=== PATIENT | male | born 1955 | race Caucasian/White ===

== ENCOUNTER → 2021-04-19 11:18 | Outpatient (BNVA) | payer MEDICARE, SELFPAY | PROVIDERS: Family Provider Family Medicine; PCP Urology; Visit Provider Registered Nurse | DX: I10 Essential (primary) hypertension (principal); E11.9 Type 2 diabetes mellitus without complications; E78.2 Mixed hyperlipidemia | CPT/HCPCS: 80053; 80061; 83036; 85025 ==

== ENCOUNTER → 2021-08-03 09:48 | Outpatient (BNVA) | payer MEDICARE, SELFPAY | PROVIDERS: Family Provider Family Medicine; PCP Registered Nurse; Visit Provider Registered Nurse | DX: E11.9 Type 2 diabetes mellitus without complications (principal); I10 Essential (primary) hypertension | CPT/HCPCS: 83036 ==

== ENCOUNTER → 2021-11-22 08:44 | Outpatient (BNVA) | payer MEDICARE, SELFPAY | PROVIDERS: Family Provider Family Medicine; PCP Registered Nurse; Visit Provider Surgery | DX: Z86.010 Personal history of colon polyps (principal); F17.210 Nicotine dependence, cigarettes, uncomplicated | CPT/HCPCS: 99203 ==

== ENCOUNTER → 2022-01-31 09:13 | Outpatient (BNVA) | payer MEDICARE, SELFPAY | PROVIDERS: Family Provider Family Medicine; PCP Registered Nurse; Visit Provider Registered Nurse | DX: E11.9 Type 2 diabetes mellitus without complications (principal); I10 Essential (primary) hypertension; I27.20 Pulmonary hypertension, unspecified | CPT/HCPCS: 80053; 83036 ==

== ENCOUNTER 2022-02-15 06:01 | Outpatient (CLI) | payer MEDICARE, SELFPAY ==
--- NOTE | 2022-02-15 06:15 | USCV_ITS ---
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 Technologist: NATHANAEL [place] [facility] [place]: PULMONARY HYPERTENSION BP: 197 / 74 HR: 72 Rhythm: Sinus Technical Quality: Suboptimal MEASUREMENTS (Male / Female) Normal Values 2D ECHO LV Ejection Fraction MOD 2C 78.4 % LV Ejection Fraction 2C AL 82.6 % LA Width 3.6 cm LA Height 3.6 cm RA Width 3.4 cm RA Height 3.4 cm IVC Diameter 1.4 cm DOPPLER AV Peak Velocity 142.0 cm/s LVOT Peak Velocity 111.0 cm/s MV Peak Velocity 106.0 cm/s MV Area PHT 4.2 cm squared Mitral E to A Ratio 0.8 MV E' Velocity 47.5 cm/s Mitral E to MV E' Ratio 8.9 Mitral E to LV E' Lateral Ratio 7.4 Mitral E to LV E' Septal Ratio 11.3 TR Peak Velocity 236.8 cm/s TR Peak Gradient 22.4 mmHg TR Mean Velocity 169.0 cm/s TR Mean Gradient 13.9 mmHg TR Velocity Time Integral 64.3 cm TV Peak E Velocity 49.0 cm/s Right Atrial Pressure 3.0 mmHg Pulmonary Artery Systolic Pressu 25.4 mmHg FINDINGS Left Ventricle Normal left ventricular size, systolic function and mildly increased wall thickness, with no regional wall motion abnormalities. Left ventricular ejection fraction is estimated at 65-70 %. Normal diastolic function. Right Ventricle Normal right ventricular size and systolic function. Right ventricular systolic pressure 36 mmHg. Right Atrium Normal right atrial size. Left Atrium Normal left atrial size. Mitral Valve Structurally normal mitral valve. No mitral valve stenosis. Trace mitral valve regurgitation. Aortic Valve Aortic valve not well visualized. No aortic valve stenosis. No aortic valve regurgitation. Tricuspid Valve Structurally normal tricuspid valve. No tricuspid valve stenosis. Trace tricuspid valve regurgitation. Pulmonic Valve Pulmonic valve not well visualized. Pericardium No pericardial effusion. Aorta Aorta not well visualized. IVC Normal inferior vena cava. CONCLUSIONS 1. Normal left ventricular size, systolic function and mildly increased wall thickness, with no regional wall motion abnormalities. Left ventricular ejection fraction is estimated at 65-70 %. Normal diastolic function. 2. Pulmonary artery pressure estimated at 36 mm Hg. 3. Trace tricuspid valve regurgitation. 4. No prior similar studies to compare. Lisa Golden MD (Electronically Signed) Final Date: 18 February 2022 09:43 S
== END 2022-02-15 06:02 | disposition home or self-care (01) ==
LOC: RAD 06:02
PROVIDERS: PCP Registered Nurse; Visit Provider Registered Nurse
DX: I27.20 Pulmonary hypertension, unspecified (principal); I07.1 Rheumatic tricuspid insufficiency
CPT/HCPCS: 93306

== ENCOUNTER 2022-02-22 06:50 | Day surgery (SDC) | payer MEDICARE, SELFPAY ==
[2022-02-20 10:31] VITALS: BMI 21.4
--- NOTE | 2022-02-22 07:21 | P.HP_ITS ---
Same Day Surgery H&P Indication for Procedure/HPI DATE OF PROCEDURE: February 22, 2022 CHIEF COMPLAINT/INDICATIONFOR SURGICAL PROCEDURE: History of colon polyps PREOP DIAGNOSIS: History of colon polyps PLANNED PROCEDURE: Operation Date: 02/22/22 08:30 Proposed Procedures p Colonoscopy 46203/Z86.010(Not Applicable) - Rodger Sommer MD 02/22/2022 Patient comes today for surveillance colonoscopy because of history of colon polyps. ROS All systems have been reviewed negative except as for the above or per problem list. Medications/Allergies* Home Medications Medication Instructions Recorded Confirmed Type aspirin 81 mg tablet,delayed 81 mg PO DAILY 04/28/20 02/20/22 History release gemfibrozil 600 mg tablet 600 mg PO BID 02/20/22 02/20/22 History Allergies/Adverse Reactions Allergy/AdvReac Type Severity Reaction Status Date / Time No Known Allergies Allergy Verified 02/22/22 07:22 Pertinent History/Comorbid Conditions* Medical History (Updated 01/31/22 @ 20:53 by SUZI Small) Cigarette smoker two packs a day or less 2 packs per day Diabetes mellitus type 2 in nonobese History of lung cancer Hyperlipidemia Hypertension Surgical History (Updated 04/29/20 @ 15:18 by SUZI Small) History of lung surgery left lung removed 2002 Family History (Updated 04/28/20 @ 10:40 by Charis Hand LPN) Diabetes Cancer Social History Smoking and tobacco status: current every day smoker cigarettes Packs smoked per day: 2 Alcohol intake: never Adopted: No Caregiver/support person: No Lives independently: Yes Marital status: / Current occupational status: retired Sexually active: No Current gender identity: Male Pertinent Exam Findings alert, oriented x 3, regular rate & rhythm and procedure specific exam findings (Abdominal examination nontender nondistended soft) Recommendations Surgery/Procedure today (Surveillance colonoscopy) Coding Level of Care Code Acute 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
[2022-02-22 07:25] VITALS: BP 147/81; PULSE 103; RESP 18; TEMP 36.7; O2SAT 98
[2022-02-22] MEDS: sodium chloride 0.9% 1,000 ML 30 ML IV (07:37)
--- NOTE | 2022-02-22 07:52 | ANES.PREANE2 ---
Pre-Anesthetic Assessment Height/Weight: Height 1.8 m Weight 69.853 kg Temp Pulse Resp BP Pulse Ox O2 Del Method 98.1 F 103 H 18 147/81 98 02/22/22 07:25 02/22/22 07:25 02/22/22 07:25 02/22/22 07:25 02/22/22 07:25 02/22/22 07:25 Preop Diagnosis: History of colon polyps Operation Date: 02/22/22 08:30 Proposed Procedures p Colonoscopy 77027/Z86.010(Not Applicable) - Rodger Sommer MD Familial anesthetic complications: none Was Beta Leelee taken within 24 hours: Yes Was Clonidine taken within 24 hours: N/A Last intake: Intake Last Liquid Date 02/21/22 Last Liquid Time 22:00 Last Solid Date 02/20/22 Last Solid Time 20:00 Social Tobacco and No alcohol Exam alert, oriented x 3 and regular rate & rhythm Right side lung sounds clear to auscultation Airway Submandibular: within normal limits Cervical ROM: within normal limits Mallampati: Class II Comments: Comments: missing teeth Pulmonary Chronic Obstructive Pulmonary Disease S/P left pneumonectomy 2002, can ascend stairs w/o SOB, no home O2, 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 We discussed spectrum of MAC anesthesia including conversion to general as well as possibility of recall of intraoperative stimuli including discomfort/pain. Patient agrees to proceed with MAC. Risk of > 500 ml blood loss (7ml/kg in children): No Other Pertinent Information BP controlled today, recently has had antihypertensives adjusted per patient Medications/Allergies Home Medications Medication Instructions Recorded Confirmed Last Taken Type aspirin 81 mg tablet,delayed 81 mg PO DAILY 04/28/20 02/22/22 02/18/22 History release hydrochlorothiazide 25 mg tablet 25 mg PO DAILY 90 days #90 tabs 10/13/21 02/20/22 02/21/22 Rx amlodipine 10 mg tablet 10 mg PO DAILY 90 days #90 tabs 04/02/20/22 02/22/22 Rx atorvastatin 40 mg tablet 40 mg PO DAILY #90 tabs 10/25/21 02/20/22 02/21/22 Rx glyburide 5 mg tablet 5 mg PO DAILY 90 days #90 tabs 10/25/21 02/20/22 02/21/22 Rx lisinopril 30 mg tablet 30 mg PO DAILY #90 tabs 10/25/21 02/20/22 02/21/22 Rx metformin 1,000 mg tablet 1,000 mg PO BID 90 days #180 tabs 10/25/21 02/22/22 02/20/22 Rx metoprolol succinate 50 mg 50 mg PO DAILY #90 tabs 10/25/21 02/20/22 02/22/22 Rx tablet,extended release 24 hr spironolactone 50 mg tablet 50 mg PO DAILY #30 tabs 01/31/22 02/22/22 02/21/22 Rx gemfibrozil 600 mg tablet 600 mg PO BID 02/20/22 02/20/22 02/21/22 History Allergies Allergy/AdvReac Type Severity Reaction Status Date / Time No Known Allergies Allergy Verified 02/22/22 07:22 Current Medications Generic Name Dose Route Start Last Admin Trade Name Freq PRN Reason Stop Dose Admin Sodium Chloride 1,000 mls @ 30 mls/hr 02/22/22 07:15 02/22/22 07:37 Sodium Chloride 0.9% IV 30 mls/hr .Q24H MAYITO Administration PFSH Anesthesia Medical History Cigarette smoker two packs a day or less 2 packs per day Diabetes mellitus type 2 in nonobese History of lung cancer Hyperlipidemia Hypertension Surgical History History of lung surgery left lung removed 2002 Family History Other Cancer Diabetes Social History Smoking and tobacco status: current every day smoker cigarettes Packs smoked per day: 2 Alcohol intake: never Adopted: No Caregiver/support person: No Lives independently: Yes Marital status: / Current occupational status: retired Sexually active: No Current gender identity: Male Data Anesthesia Cardiac Studies: Echocardiogram 02/15/22
[2022-02-22 08:48] VITALS: BP 91/48; PULSE 75; RESP 12; TEMP 36.1; O2SAT 99
[2022-02-22 09:03] VITALS: BP 113/64; PULSE 80; RESP 16; O2SAT 99
--- NOTE | 2022-02-22 11:18 | ANE.PACU2 ---
Inpatient post-anesthesia follow up: Airway intact: Yes Vital signs: Temperature 97 F Pulse Rate 80 Respiratory Rate 16 Blood Pressure 113/64 Pulse Oximetry 99 Oxygen Delivery Me thod Room Air Oxygen Flow Rate Fraction of Inspir ed Oxygen Hydration adequate: Yes Nausea and vomiting: No Pain level: 1 Mental status: Baseline
== END 2022-02-22 09:15 | disposition home or self-care (01) ==
PROVIDERS: PCP Registered Nurse; Visit Provider Surgery
PROC: 0DJD8ZZ Inspection of Lower Intestinal Tract, Via Natural or Artificial Opening Endoscopic (ICD-10-PCS; CPT 45378; principal; 2022-02-22 08:30)
DX: Z12.11 Encounter for screening for malignant neoplasm of colon (principal); D12.8 Benign neoplasm of rectum; Z86.010 Personal history of colon polyps; F17.210 Nicotine dependence, cigarettes, uncomplicated; E11.9 Type 2 diabetes mellitus without complications; E78.5 Hyperlipidemia, unspecified; I10 Essential (primary) hypertension; Z85.118 Personal history of other malignant neoplasm of bronchus and lung
CPT/HCPCS: 45385; 88305; J2704; J7030

== ENCOUNTER → 2022-03-22 16:42 | Outpatient (BNVA) | payer MEDICARE, SELFPAY | PROVIDERS: PCP Registered Nurse; Visit Provider Surgery | DX: Z86.010 Personal history of colon polyps (principal); Z09 Encounter for follow-up examination after completed treatment for conditions other than malignant neoplasm | CPT/HCPCS: 99212 ==

== ENCOUNTER → 2022-07-26 10:23 | Outpatient (BNVA) | payer MEDICARE, SELFPAY | PROVIDERS: PCP Registered Nurse; Visit Provider Registered Nurse | DX: I10 Essential (primary) hypertension (principal); E11.9 Type 2 diabetes mellitus without complications | CPT/HCPCS: 83036 ==

== ENCOUNTER → 2022-10-18 11:25 | Outpatient (BNVA) | payer MEDICARE, SELFPAY | PROVIDERS: PCP Registered Nurse; Visit Provider Registered Nurse | DX: E11.9 Type 2 diabetes mellitus without complications (principal); Z79.899 Other long term (current) drug therapy | CPT/HCPCS: 83036 ==

== ENCOUNTER → 2023-01-18 08:28 | Outpatient (BNVA) | payer MEDICARE, SELFPAY | PROVIDERS: PCP Registered Nurse; Visit Provider Registered Nurse | DX: E11.9 Type 2 diabetes mellitus without complications (principal) | CPT/HCPCS: 80053; 80061; 83036; 85025 ==

== ENCOUNTER → 2023-07-22 08:43 | Outpatient (BNVA) | payer MEDICARE, SELFPAY | PROVIDERS: PCP Registered Nurse; Visit Provider Registered Nurse | DX: I10 Essential (primary) hypertension (principal); E11.9 Type 2 diabetes mellitus without complications | CPT/HCPCS: 80053; 80061; 83036; 85025 ==

== ENCOUNTER → 2024-01-20 08:48 | Outpatient (BNVA) | payer MEDICARE, SELFPAY | PROVIDERS: PCP Registered Nurse; Visit Provider Registered Nurse | DX: E11.9 Type 2 diabetes mellitus without complications (principal); E78.2 Mixed hyperlipidemia | CPT/HCPCS: 80053; 83036; 88305 ==

== ENCOUNTER → 2024-02-04 07:51 | Outpatient (BNVA) | payer MEDICARE, SELFPAY | PROVIDERS: PCP Registered Nurse; Visit Provider Dermatology | DX: C44.622 Squamous cell carcinoma of skin of right upper limb, including shoulder (principal) | CPT/HCPCS: 15240; 17311 ==

== ENCOUNTER → 2024-02-18 11:11 | Outpatient (BNVA) | payer MEDICARE, SELFPAY | PROVIDERS: PCP Registered Nurse; Visit Provider Dermatology | DX: Z48.817 Encounter for surgical aftercare following surgery on the skin and subcutaneous tissue (principal); Z48.02 Encounter for removal of sutures; L81.4 Other melanin hyperpigmentation; D69.2 Other nonthrombocytopenic purpura | CPT/HCPCS: 99213 ==

== ENCOUNTER → 2024-03-02 10:55 | Outpatient (BNVA) | payer MEDICARE, SELFPAY | PROVIDERS: PCP Registered Nurse; Visit Provider Dermatology | DX: Z48.817 Encounter for surgical aftercare following surgery on the skin and subcutaneous tissue (principal) | CPT/HCPCS: 99212 ==

== ENCOUNTER → 2024-06-04 10:24 | Outpatient (BNVA) | payer MEDICARE, SELFPAY | PROVIDERS: PCP Registered Nurse; Visit Provider Registered Nurse | DX: E11.9 Type 2 diabetes mellitus without complications (principal) | CPT/HCPCS: 80048; 83036 ==

== ENCOUNTER → 2024-06-23 10:43 | Outpatient (BNVA) | payer MEDICARE, SELFPAY | PROVIDERS: PCP Registered Nurse; Visit Provider Registered Nurse | DX: R06.02 Shortness of breath (principal) | CPT/HCPCS: 80048; 83880; 85025 ==

== ENCOUNTER → 2024-06-29 08:29 | Outpatient (BNVA) | payer MEDICARE, SELFPAY | PROVIDERS: PCP Registered Nurse; Visit Provider Registered Nurse | DX: E87.1 Hypo-osmolality and hyponatremia (principal) | CPT/HCPCS: 80053 ==

== ENCOUNTER → 2024-11-24 09:13 | Outpatient (BNVA) | payer MEDICARE, SELFPAY | PROVIDERS: PCP Registered Nurse; Visit Provider Registered Nurse | DX: E11.9 Type 2 diabetes mellitus without complications (principal) | CPT/HCPCS: 80053; 83036; 85025 ==

== ENCOUNTER → 2025-05-25 09:27 | Outpatient (BNVA) | payer MEDICARE, SELFPAY | PROVIDERS: PCP Registered Nurse; Visit Provider Registered Nurse | DX: E11.9 Type 2 diabetes mellitus without complications (principal) | CPT/HCPCS: 80053; 83036 ==